=== PATIENT | male | born 1965 | race African-American/Black ===

== ENCOUNTER 2018-01-21 12:43 | Inpatient (IN) | payer OTHER ==
[2018-01-21 13:16] LABS: Glucose,Whole Blood 152 mg/dL (75-99)
[2018-01-21] MEDS ORDERED: PIPERACILLIN-TAZOBACTAM 3.375 GM in DEXTROSE/WATER 1 50ML.BAG IVPB STA (13:35)
[2018-01-21] MEDS ORDERED: ACETAMINOPHEN TAB 500 MG TAB PO STA (13:35)
[2018-01-21] MEDS ORDERED: SODIUM CHLORIDE 0.9% 1,000 ML IV STA (13:35)
[2018-01-21] MEDS ORDERED: OSELTAMIVIR 75 MG CAP PO STA (13:46)
[2018-01-21] MEDS ORDERED: VANCOMYCIN IV PER PHARMACY 1 EACH MISC MISCELLANE PRN (14:08)
[2018-01-21] MEDS ORDERED: VANCOMYCIN 2,250 MG in SODIUM CHLORIDE 0.9% 500 ML IVPB STA (14:16)
[2018-01-21 14:37] LABS: Basophils # (A) 0.3 k/uL (0-0.2); Basophils % (A) 4 %; Eosinophils % (A) 0 %; HCT 41.2 % (39.0-53.0); HGB 13.8 gm/dL (13.0-17.5); Lymphocytes # (A) 0.6 k/uL (1.0-4.8); Lymphocytes % (A) 7 %; MCH 26.5 pg (25.0-35.0); MCHC 33.6 g/dL (31.0-37.0); MCV 78.8 fL (80.0-100.0); Mean Platelet Volume 7.5; Monocytes % (A) 13 %; Neutrophils # (A) 5.7 k/uL (1.3-7.7); Neutrophils % (A) 74 %; Platelet Count 198 k/uL (150-450); RBC 5.23 m/uL (4.30-5.90); RDW 14.5 % (11.5-15.5); WBC 7.7 k/uL (3.8-10.6)
--- NOTE | 2018-01-21 14:46 | XR ---
EXAMINATION TYPE: XR chest 2V DATE OF EXAM: 01/21/2018 COMPARISON: NONE HISTORY: Fever and flulike symptoms, difficulty breathing TECHNIQUE: Frontal and lateral views of the chest are obtained. FINDINGS: There is no focal air space opacity, pleural effusion, or pneumothorax seen. The cardiac silhouette size is within normal limits. Patient is rotated, there may be underlying scoliosis. The osseous structures are intact. IMPRESSION: No acute cardiopulmonary process.
[2018-01-21 14:48] LABS: Albumin 3.8 g/dL (3.5-5.0); Calcium 8.6 mg/dL (8.4-10.2); Potassium 3.8 mmol/L (3.5-5.1); Total Bilirubin 0.3 mg/dL (0.2-1.3); Total Protein 7.3 g/dL (6.3-8.2)
[2018-01-21] MEDS: SODIUM CHLORIDE 0.9% 1,000 ML IV STA ×2 (14:57→15:11)
[2018-01-21] MEDS ORDERED: IBUPROFEN 800 MG TAB PO STA (15:07)
[2018-01-21] MEDS ORDERED: SODIUM CHLORIDE 0.9% 1,000 ML IV ONE (15:07)
[2018-01-21] MEDS ORDERED: SODIUM CHLORIDE 0.9% 2,000 ML IV ONE (15:44)
--- NOTE | 2018-01-21 15:47 | ED ---
Fever HPI - General Chief Complaint: Fever Stated Complaint: fever Time Seen by Provider: 01/21/18 13:30 Source: patient Mode of arrival: ambulatory Limitations: no limitations - History of Present Illness Initial Comments: 52 years old male presents with the high fever cough sputum production, he has a history of firm sepsis and recent past she was admitted for that also has a history of diabetes and now hypertension. He denies any chest pain no pleuritic chest pain and no sick contacts no history of coronary artery disease no stents in place. Denies any abdominal pain no frequency urgency dysuria no symptoms of TIA or CVA - Related Data Home Medications Medication Instructions Recorded Confirmed Dextroamphetamine/Amphetamine 30 mg PO BID 01/21/18 01/21/18 [Adderall Xr] Insulin Glargine [Lantus] See Protocol SQ HS PRN 01/21/18 01/21/18 Lisinopril [Zestril] 20 mg PO BID 01/21/18 01/21/18 Tadalafil [Cialis] 20 mg PO TID PRN 01/21/18 01/21/18 amLODIPine [Norvasc] 10 mg PO DAILY 01/21/18 01/21/18 traMADol HCL [Ultram] 50 mg PO Q4HR PRN 01/21/18 01/21/18 Allergies Allergy/AdvReac Type Severity Reaction Status Date / Time No Known Allergies Allergy Verified 01/21/18 14:18 Review of Systems ROS Statement: Those systems with pertinent positive or pertinent negative responses have been documented in the HPI. ROS Other: All systems not noted in ROS Statement are negative. Past Medical History Past Medical History: Diabetes Mellitus, Pneumonia Additional Past Medical History / Comment(s): sepsis, History of Any Multi-Drug Resistant Organisms: None Reported Past Surgical History: Orthopedic Surgery Additional Past Surgical History / Comment(s): rt wrist Past Psychological History: No Psychological Hx Reported Smoking Status: Never smoker Past Alcohol Use History: None Reported Past Drug Use History: None Reported General Exam - General Exam Comments Initial Comments: General: The patient is awake and alert, in mod distress, and does look tired and coughs consistently. Skin: Skin is warm and dry and no rashes or lesions are noted. Eye: Pupils are equal, round and reactive to light, extra-ocular movements are intact; there is normal conjunctiva bilaterally. Ears, nose, mouth and throat: There are moist mucous membranes and no oral lesions. Neck: The neck is supple, there is no tenderness , no signs of meningitis Cardiovascular: There is a regular rate and rhythm. No murmur, rub or gallop is appreciated. Respiratory: To auscultation bilateral, noticed times of secretions bilateral Gastrointestinal: Soft, non-distended, non-tender abdomen without masses or organomegaly noted. There is no rebound or guarding present. Bowel sounds are unremarkable. Back: There is no tenderness to palpation in the midline. There is no obvious deformity. Musculoskeletal: Normal ROM, no tenderness, There is no pedal edema. There is no calf tenderness or swelling. No cords were appreciated. Neurological: CN II-XII intact, Cranial nerves III through XII are intact. There are no obvious motor or sensory deficits. Coordination appears grossly intact. Speech is normal. Psychiatric: Cooperative, appropriate mood & affect, normal judgment. Limitations: no limitations Course Vital Signs 01/21/18 01/21/18 13:07 15:02 Temperature 103.0 F H 102.7 F H Pulse Rate 106 H 104 H Respiratory 24 24 Rate Blood Pressure 138/74 157/73 O2 Sat by Pulse 96 92 L Oximetry Medical Decision Making - Lab Data Result diagrams: 01/21/18 14:05 01/21/18 14:05 Lab Results 01/21/18 01/21/18 01/21/18 Range/Units 13:15 13:18 14:05 WBC 7.7 (3.8-10.6) k/uL RBC 5.23 (4.30-5.90) m/uL Hgb 13.8 (13.0-17.5) gm/dL Hct 41.2 (39.0-53.0) % MCV 78.8 L (80.0-100.0) fL MCH 26.5 (25.0-35.0) pg MCHC 33.6 (31.0-37.0) g/dL RDW 14.5 (11.5-15.5) % Plt Count 198 (150-450) k/uL Neutrophils % 74 % Lymphocytes % 7 % Monocytes % 13 % Eosinophils % 0 % Basophils % 4 % Neutrophils # 5.7 (1.3-7.7) k/uL Lymphocytes # 0.6 L (1.0-4.8) k/uL Monocytes # 1.0 (0-1.0) k/uL Eosinophils # 0.0 (0-0.7) k/uL Basophils # 0.3 H (0-0.2) k/uL Sodium (137-145) mmol/L Potassium (3.5-5.1) mmol/L Chloride (98-107) mmol/L Carbon Dioxide (22-30) mmol/L Anion Gap mmol/L BUN (9-20) mg/dL Creatinine (0.66-1.25) mg/dL Est GFR (CKD-EPI)AfAm (>60 ml/min/1.73 sqM) Est GFR (CKD-EPI)NonAf (>60 ml/min/1.73 sqM) Glucose (74-99) mg/dL POC Glucose (mg/dL) 152 H (75-99) mg/dL POC Glu Training Representative ID Plasma Lactic Acid Jordy (0.7-2.0) mmol/L Calcium (8.4-10.2) mg/dL Total Bilirubin (0.2-1.3) mg/dL AST (17-59) U/L ALT (21-72) U/L Alkaline Phosphatase (38-126) U/L Total Protein (6.3-8.2) g/dL Albumin (3.5-5.0) g/dL Influenza Type A RNA Detected H (Not Detectd) Influenza Type B (PCR) Not Detected (Not Detectd) Group A Strep Rapid (Negative) 01/21/18 01/21/18 01/21/18 Range/Units 14:05 14:05 14:10 WBC (3.8-10.6) k/uL RBC (4.30-5.90) m/uL Hgb (13.0-17.5) gm/dL Hct (39.0-53.0) % MCV (80.0-100.0) fL MCH (25.0-35.0) pg MCHC (31.0-37.0) g/dL RDW (11.5-15.5) % Plt Count (150-450) k/uL Neutrophils % % Lymphocytes % % Monocytes % % Eosinophils % % Basophils % % Neutrophils # (1.3-7.7) k/uL Lymphocytes # (1.0-4.8) k/uL Monocytes # (0-1.0) k/uL Eosinophils # (0-0.7) k/uL Basophils # (0-0.2) k/uL Sodium 137 (137-145) mmol/L Potassium 3.8 (3.5-5.1) mmol/L Chloride 99 (98-107) mmol/L Carbon Dioxide 27 (22-30) mmol/L Anion Gap 11 mmol/L BUN 16 (9-20) mg/dL Creatinine 1.10 (0.66-1.25) mg/dL Est GFR (CKD-EPI)AfAm 90 (>60 ml/min/1.73 sqM) Est GFR (CKD-EPI)NonAf 77 (>60 ml/min/1.73 sqM) Glucose 135 H (74-99) mg/dL POC Glucose (mg/dL) (75-99) mg/dL POC Glu Training Representative ID Plasma Lactic Acid Jordy 2.3 H* (0.7-2.0) mmol/L Calcium 8.6 (8.4-10.2) mg/dL Total Bilirubin 0.3 (0.2-1.3) mg/dL AST 55 (17-59) U/L ALT 43 (21-72) U/L Alkaline Phosphatase 79 (38-126) U/L Total Protein 7.3 (6.3-8.2) g/dL Albumin 3.8 (3.5-5.0) g/dL Influenza Type A RNA (Not Detectd) Influenza Type B (PCR) (Not Detectd) Group A Strep Rapid Negative (Negative) Disposition Referrals: Vasquez Grajeda MD [Primary Care Provider] - 1-2 days
[2018-01-21 15:51] LABS: Appearance,Urine Clear (Clear); Bilirubin,Urine Negative (Negative); Blood,Urine Moderate (Negative); Color,Urine Yellow; Glucose,Urine (UA) 3+ (Negative); Ketones,Urine Negative (Negative); Leukocyte Esterase,Urine Negative (Negative); Nitrite,Urine Negative (Negative); Protein,Urine 1+ (Negative); RBC,Urine 48 /hpf (0-5); Specific Gravity,Urine 1.011 (1.001-1.035); Urobilinogen,Urine <2.0 mg/dL (<2.0); WBC,Urine 3 /hpf (0-5)
[2018-01-21] MEDS ORDERED: traMADol 50 MG TAB PO PRN (15:58)
[2018-01-21] MEDS ORDERED: ONDANSETRON 4 MG/2 ML VIAL IVP PRN (19:33)
[2018-01-21] MEDS ORDERED: NALOXONE 0.4 MG/ML 1 ML VIAL IV PRN (19:33)
[2018-01-21] MEDS ORDERED: ACETAMINOPHEN TAB 500 MG TAB PO PRN (19:33)
[2018-01-21] MEDS ORDERED: NON-FORMULARY DRUG (Dextroamphetamine/Amphetamine [Adderall Xr] 30 MG) PO SCH (21:00)
[2018-01-21] MEDS: VANCOMYCIN 2,250 MG in SODIUM CHLORIDE 0.9% 500 ML IVPB SCH (21:48)
[2018-01-21] MEDS: LISINOPRIL 20 MG TAB PO SCH (21:48)
[2018-01-21] MEDS: OSELTAMIVIR 75 MG CAP PO SCH (21:55)
[2018-01-21] MEDS ORDERED: VANCOMYCIN 2,250 MG in SODIUM CHLORIDE 0.9% 500 ML IVPB SCH (23:00)
[2018-01-22] MEDS: PIPERACILLIN-TAZOBACTAM 3.375 GM in DEXTROSE/WATER 1 50ML.BAG IVPB SCH ×2 (01:03→08:47)
[2018-01-22 08:42] VITALS: BP 125/58; PULSE 94; RESP 18; TEMP 98.3
[2018-01-22 08:44] LABS: Anion Gap 11 mmol/L; Blood Urea Nitrogen 12 mg/dL (9-20); Calcium 7.5 mg/dL (8.4-10.2); Carbon Dioxide 22 mmol/L (22-30); Chloride 106 mmol/L (98-107); Glucose 164 mg/dL (74-99); Potassium 3.4 mmol/L (3.5-5.1); Sodium 139 mmol/L (137-145)
[2018-01-22] MEDS: VANCOMYCIN 2,250 MG in SODIUM CHLORIDE 0.9% 500 ML IVPB SCH ×2 (08:48→10:38)
[2018-01-22] MEDS: LISINOPRIL 20 MG TAB PO SCH (08:48)
[2018-01-22] MEDS: OSELTAMIVIR 75 MG CAP PO SCH (08:48)
[2018-01-22] MEDS ORDERED: amLODIPine 10 MG TAB PO SCH (09:00)
[2018-01-22] MEDS ORDERED: guaiFENesin-DM 100-10MG/5ML 10 ML CUP PO PRN (10:30)
--- NOTE | 2018-01-22 11:45 | P.HPIM ---
History of Present Illness 52 years old male presents with the high fever cough sputum production, He denies any chest pain no pleuritic chest pain and no sick contacts no history of coronary artery disease no stents in place. Denies any abdominal pain no frequency urgency dysuria no symptoms of TIA or CVA. Patient has significant flulike symptoms with fever patient was diagnosed with influenza patient will be discharged on Tamiflu received IV fluids patient was on broad-spectrum antibiotics which are not necessarily. Review of Systems REVIEW OF SYSTEMS: CONSTITUTIONAL: As mentioned in HPI HEENT: No recent visual problems or hearing problems. Denied any sore throat. CARDIOVASCULAR: No chest pain, orthopnea, PND, no palpitations, no syncope. PULMONARY: As mentioned in HPI GASTROINTESTINAL: No diarrhea, no nausea, no vomiting, no abdominal pain. Normoactive bowel sounds. NEUROLOGICAL: No headaches, no weakness, no numbness. HEMATOLOGICAL: Denies any bleeding or petechiae. GENITOURINARY: Denies any burning micturition, frequency, or urgency. MUSCULOSKELETAL/RHEUMATOLOGICAL: Denies any joint pain, swelling, or any muscle pain. ENDOCRINE: Denies any polyuria or polydipsia. The rest of the 14-point review of systems is negative. Past Medical History Past Medical History: Diabetes Mellitus, Hypertension, Osteoarthritis (OA), Pneumonia Additional Past Medical History / Comment(s): sepsis,as child broke lt arm-no sx only casted. History of Any Multi-Drug Resistant Organisms: None Reported Past Surgical History: Orthopedic Surgery, Tonsillectomy Additional Past Surgical History / Comment(s): rt wrist tendon repair Past Anesthesia/Blood Transfusion Reactions: Previous Problems w/ Anesthesia Additional Past Anesthesia/Blood Transfusion Reaction / Comment(s): "gets loopy ,combataive and somewhat depressed after aa" Smoking Status: Never smoker - Past Family History Father History Unknown: Yes Mother History Unknown: Yes Medications and Allergies Home Medications Medication Instructions Recorded Confirmed Type Dextroamphetamine/Amphetamine 30 mg PO BID 01/21/18 01/21/18 History [Adderall Xr] Insulin Glargine [Lantus] See Protocol SQ HS PRN 01/21/18 01/21/18 History Lisinopril [Zestril] 20 mg PO BID 01/21/18 01/21/18 History Tadalafil [Cialis] 20 mg PO TID PRN 01/21/18 01/21/18 History amLODIPine [Norvasc] 10 mg PO DAILY 01/21/18 01/21/18 History traMADol HCL [Ultram] 50 mg PO Q4HR PRN 01/21/18 01/21/18 History Allergies Allergy/AdvReac Type Severity Reaction Status Date / Time No Known Allergies Allergy Verified 01/21/18 14:18 Physical Exam Vitals: Vital Signs Temp Pulse Pulse Resp BP BP Pulse Ox 01/22/18 07:00 98.3 F 94 18 125/58 97 01/21/18 23:00 97.5 F L 85 16 134/76 99 01/21/18 20:04 67 18 119/61 97 01/21/18 18:10 99.4 F 95 22 130/67 96 01/21/18 15:02 102.7 F H 104 H 24 157/73 92 L 01/21/18 13:07 103.0 F H 106 H 24 138/74 96 Intake and Output 01/21/18 01/22/18 01/22/18 22:59 06:59 14:59 Intake Total 350 1050 Output Total 1000 1000 Balance 350 50 -1000 Intake: Intake, IV Titration 350 1050 Amount Piperacillin-Tazobactam 3 50 .375 gm In Dextrose/Water 1 50ml.bag @ 12.5 mls/hr IVPB Q8HR SUZANNE Rx#: [id number] Sodium Chloride 0.9% 1, 350 500 000 ml @ 100 mls/hr IV . Q10H STA Rx#:[id number] Vancomycin 2,250 mg In 500 Sodium Chloride 0.9% 500 ml @ 166.667 mls/hr IVPB BID SUZANNE Rx#:[id number] Output: Urine 1000 1000 Other: Voiding Method Urinal PHYSICAL EXAMINATION: GENERAL: The patient is alert and oriented x3, not in any acute distress. Well developed, well nourished. Morbidly obese HEENT: Pupils are round and equally reacting to light. EOMI. No scleral icterus. No conjunctival pallor. Normocephalic, atraumatic. No pharyngeal erythema. No thyromegaly. CARDIOVASCULAR: S1 and S2 present. No murmurs, rubs, or gallops. PULMONARY: Chest is clear to auscultation, no wheezing or crackles. ABDOMEN: Soft, nontender, nondistended, normoactive bowel sounds. No palpable organomegaly. MUSCULOSKELETAL: No joint swelling or deformity. EXTREMITIES: No cyanosis, clubbing, or pedal edema. NEUROLOGICAL: Gross neurological examination did not reveal any focal deficits. SKIN: No rashes. Results CBC & Chem 7: 01/21/18 14:05 01/22/18 07:50 Labs: Abnormal Lab Results - Last 24 Hours (Table) 01/21/18 01/21/18 01/21/18 Range/Units 13:15 13:18 13:30 MCV (80.0-100.0) fL Lymphocytes # (1.0-4.8) k/uL Basophils # (0-0.2) k/uL Potassium (3.5-5.1) mmol/L Glucose (74-99) mg/dL POC Glucose (mg/dL) 152 H (75-99) mg/dL Plasma Lactic Acid Jordy (0.7-2.0) mmol/L Calcium (8.4-10.2) mg/dL Urine Protein 1+ H (Negative) Urine Glucose (UA) 3+ H (Negative) Urine Blood Moderate H (Negative) Urine RBC 48 H (0-5) /hpf Influenza Type A RNA Detected H (Not Detectd) 01/21/18 01/21/18 01/21/18 Range/Units 14:05 14:05 14:05 MCV 78.8 L (80.0-100.0) fL Lymphocytes # 0.6 L (1.0-4.8) k/uL Basophils # 0.3 H (0-0.2) k/uL Potassium (3.5-5.1) mmol/L Glucose 135 H (74-99) mg/dL POC Glucose (mg/dL) (75-99) mg/dL Plasma Lactic Acid Jordy 2.3 H* (0.7-2.0) mmol/L Calcium (8.4-10.2) mg/dL Urine Protein (Negative) Urine Glucose (UA) (Negative) Urine Blood (Negative) Urine RBC (0-5) /hpf Influenza Type A RNA (Not Detectd) 01/22/18 Range/Units 07:50 MCV (80.0-100.0) fL Lymphocytes # (1.0-4.8) k/uL Basophils # (0-0.2) k/uL Potassium 3.4 L (3.5-5.1) mmol/L Glucose 164 H (74-99) mg/dL POC Glucose (mg/dL) (75-99) mg/dL Plasma Lactic Acid Jordy (0.7-2.0) mmol/L Calcium 7.5 L (8.4-10.2) mg/dL Urine Protein (Negative) Urine Glucose (UA) (Negative) Urine Blood (Negative) Urine RBC (0-5) /hpf Influenza Type A RNA (Not Detectd) Microbiology - Last 24 Hours (Table) 01/21/18 23:30 Urine Culture - Preliminary Urine,Voided 01/21/18 13:30 Urine Culture - Preliminary Urine,Voided 01/21/18 14:10 Group A Strep Throat Culture - Preliminary Throat Assessment and Plan Plan: -Sepsis and systemic inflammatory response secondary to influenza improved symptoms at this time patient will be discharged on Tamiflu. -Hypertension next and-obesity: Counseling was provided -Hyperlipidemia -Atrial flutter ablation presently rate controlled not on anticoagulation may be proximal atrial fibrillation
== END 2018-01-22 13:20 | disposition home or self-care (01) | DRG 872 ==
LOC: EC 12:43 → 5MS5E 19:33
PROVIDERS: ADMIT Internal Medicine; ATTEND Internal Medicine
DX: A41.89 Other specified sepsis (principal); E11.9 Type 2 diabetes mellitus without complications; J11.1 Influenza due to unidentified influenza virus with other respiratory manifestations; E66.9 Obesity, unspecified; E78.5 Hyperlipidemia, unspecified; I10 Essential (primary) hypertension; M19.90 Unspecified osteoarthritis, unspecified site; Z68.41 Body mass index [BMI] 40.0-44.9, adult; Z79.899 Other long term (current) drug therapy; Z79.4 Long term (current) use of insulin; Z87.01 Personal history of pneumonia (recurrent); Z71.3 Dietary counseling and surveillance
CPT/HCPCS: 36415; 71046; 80048; 80053; 81001; 83605; 85025; 87040; 87081; 87086; 87430; 87502; 96361; 96365; 96366; 96367; 99284

== ENCOUNTER 2019-12-31 11:52 | Emergency (ER) | payer OTHER ==
[2019-12-31 11:57] VITALS: TEMP 98.6
--- NOTE | 2019-12-31 12:58 | ED ---
Extremity Problem HPI - General Chief complaint: Extremity Problem,Nontraumatic Stated complaint: Left Leg Pain and Swelling Time Seen by Provider: 12/31/19 11:58 Source: patient Mode of arrival: ambulatory Limitations: no limitations - History of Present Illness Initial comments: Patient is a 54-year-old male, with history of diabetes, sepsis, presenting to emergency Department with complaints of left lower extremity swelling and pain has been increasing over the past 2-3 weeks. Patient noticed swelling in his left foot first and then has progressively getting worse. He denies any injuries or trauma to his left leg. He denies history of gout. He denies fever, chills, nausea, vomiting. He states he has been able to walk on his left extremity however is becoming more painful. He denies any recent travel. He has no other complaints at this time. Upon arrival to the ER, his vitals are stable. - Related Data Home Medications Medication Instructions Recorded Confirmed Dextroamphetamine/Amphetamine 30 mg PO BID 01/21/18 12/31/19 [Adderall Xr] amLODIPine [Norvasc] 10 mg PO DAILY 01/21/18 12/31/19 traMADol HCL [Ultram] 100 mg PO TID 01/21/18 12/31/19 INSULIN LISPRO (humaLOG) [humaLOG] 19 units SQ [id number] 12/31/19 12/31/19 Insulin Glargine [Lantus] 48 unit SQ DAILY 12/31/19 12/31/19 Lisinopril 20 mg PO BID 12/31/19 12/31/19 Sildenafil [Revatio] 20 mg PO TID 12/31/19 12/31/19 metFORMIN HCL [Glucophage] 500 mg PO BID 12/31/19 12/31/19 Previous Rx's Medication Instructions Recorded Cephalexin [Keflex] 500 mg PO Q6HR 10 Days #40 cap 12/31/19 Sulfamethox-Tmp 800-160Mg [Bactrim 1 each PO Q12HR 10 Days #20 tab 12/31/19 Ds] Allergies Allergy/AdvReac Type Severity Reaction Status Date / Time No Known Allergies Allergy Verified 12/31/19 12:49 Review of Systems ROS Statement: Those systems with pertinent positive or pertinent negative responses have been documented in the HPI. ROS Other: All systems not noted in ROS Statement are negative. Past Medical History Past Medical History: Diabetes Mellitus, Pneumonia Additional Past Medical History / Comment(s): sepsis, History of Any Multi-Drug Resistant Organisms: None Reported Past Surgical History: Orthopedic Surgery Additional Past Surgical History / Comment(s): rt wrist Past Anesthesia/Blood Transfusion Reactions: Previous Problems w/ Anesthesia Additional Past Anesthesia/Blood Transfusion Reaction / Comment(s): "gets loopy ,combataive and somewhat depressed after aa" Past Psychological History: No Psychological Hx Reported Smoking Status: Never smoker Past Alcohol Use History: Occasional Past Drug Use History: None Reported - Past Family History Father History Unknown: Yes Mother History Unknown: Yes General Exam - General Exam Comments Initial Comments: GENERAL: Well-appearing, well-nourished and in no acute distress. HEAD: Atraumatic, normocephalic. EYES: Pupils equal round and reactive to light, extraocular movements intact, sclera anicteric, conjunctiva are normal. ENT: TMs normal, nares patent, oropharynx clear without exudates. Moist mucous membranes. NECK: Normal range of motion, supple without lymphadenopathy or JVD. LUNGS: Breath sounds clear to auscultation bilaterally and equal. No wheezes rales or rhonchi. HEART: Regular rate and rhythm without murmurs, rubs or gallops. ABDOMEN: Soft, nontender, normoactive bowel sounds. No guarding, no rebound. No masses appreciated. : Deferred EXTREMITIES: Patient has moderate amount of swelling of left lower extremity compared to right. Increase in warmth of the left lower leg compared to the right as well. Palpable dorsal pedis pulse is equal bilateral. Patient does have pain with palpation on the left medial foot, over her first metatarsal. No pain with palpation of the left calf or left knee. Patient does have full range of motion of his left knee, left ankle, left foot. No clubbing or cyanosis. NEUROLOGICAL: Normal speech, normal gait. PSYCH: Normal mood, normal affect. SKIN: Warm, Dry, normal turgor, no rashes or lesions noted. Limitations: no limitations Course Vital Signs 12/31/19 12/31/19 12/31/19 11:54 11:57 12:57 Temperature 98.6 F Pulse Rate 81 68 Respiratory 16 20 20 Rate Blood Pressure 124/78 124/78 O2 Sat by Pulse 95 99 Oximetry 12/31/19 12/31/19 13:57 14:53 Temperature Pulse Rate 72 Respiratory 20 20 Rate Blood Pressure 125/72 O2 Sat by Pulse 99 Oximetry Medical Decision Making - Medical Decision Making Patient is a 54-year-old male, with history of diabetes, presenting with left lower leg swelling, pain, warmth for the past 2-3 weeks. Vitals are stable today. No trauma to the leg. X-ray of the left foot shows no acute fractures dislocations. Ultrasound of the left lower extremity shows no signs of DVT. Lab work reveals an elevated ESR 16 and CRP at 20. Potassium is low at 3.0. White count is normal. I discussed these findings with the patient and his . Patient will be given oral tablet of potassium as well as 1 g of Rocephin. Patient will be treated for possible left lower leg cellulitis. Started on Keflex and Bactrim and will follow up with his primary care physician in 1- 3 days. He is in agreement with this plan of care. Return parameters were discussed with the patient and his and they both verbalized understa nding. He is stable for discharge. Case discussed with Dr. Lackey. - Lab Data Result diagrams: 12/31/19 13:34 12/31/19 13:34 Lab Results 12/31/19 12/31/19 12/31/19 Range/Units 13:34 13:34 13:34 WBC 10.3 (3.8-10.6) k/uL RBC 5.25 (4.30-5.90) m/uL Hgb 13.9 (13.0-17.5) gm/dL Hct 43.2 (39.0-53.0) % MCV 82.3 D (80.0-100.0) fL MCH 26.4 (25.0-35.0) pg MCHC 32.1 (31.0-37.0) g/dL RDW 15.3 (11.5-15.5) % Plt Count 240 (150-450) k/uL Neutrophils % 63 % Lymphocytes % 27 % Monocytes % 5 % Eosinophils % 3 % Basophils % 0 % Neutrophils # 6.4 (1.3-7.7) k/uL Lymphocytes # 2.8 (1.0-4.8) k/uL Monocytes # 0.5 (0-1.0) k/uL Eosinophils # 0.3 (0-0.7) k/uL Basophils # 0.0 (0-0.2) k/uL ESR (0-15) mm/hr PT 10.0 (9.0-12.0) sec INR 1.0 (<1.2) APTT 25.2 (22.0-30.0) sec Sodium 141 (137-145) mmol/L Potassium 3.0 L (3.5-5.1) mmol/L Chloride 107 (98-107) mmol/L Carbon Dioxide 24 (22-30) mmol/L Anion Gap 10 mmol/L BUN 16 (9-20) mg/dL Creatinine 1.08 (0.66-1.25) mg/dL Est GFR (CKD-EPI)AfAm >90 (>60 ml/min/1.73 sqM) Est GFR (CKD-EPI)NonAf 78 (>60 ml/min/1.73 sqM) Glucose 167 H (74-99) mg/dL Uric Acid 5.6 (3.5-8.5) mg/dL Calcium 8.4 (8.4-10.2) mg/dL Total Bilirubin 0.4 (0.2-1.3) mg/dL AST 34 (17-59) U/L ALT 27 (4-49) U/L Alkaline Phosphatase 79 (38-126) U/L C-Reactive Protein (<10.0) mg/L Total Protein 7.5 (6.3-8.2) g/dL Albumin 3.9 (3.5-5.0) g/dL 12/31/19 12/31/19 Range/Units 13:34 14:20 WBC (3.8-10.6) k/uL RBC (4.30-5.90) m/uL Hgb (13.0-17.5) gm/dL Hct (39.0-53.0) % MCV (80.0-100.0) fL MCH (25.0-35.0) pg MCHC (31.0-37.0) g/dL RDW (11.5-15.5) % Plt Count (150-450) k/uL Neutrophils % % Lymphocytes % % Monocytes % % Eosinophils % % Basophils % % Neutrophils # (1.3-7.7) k/uL Lymphocytes # (1.0-4.8) k/uL Monocytes # (0-1.0) k/uL Eosinophils # (0-0.7) k/uL Basophils # (0-0.2) k/uL ESR 16 H (0-15) mm/hr PT (9.0-12.0) sec INR (<1.2) APTT (22.0-30.0) sec Sodium (137-145) mmol/L Potassium (3.5-5.1) mmol/L Chloride (98-107) mmol/L Carbon Dioxide (22-30) mmol/L Anion Gap mmol/L BUN (9-20) mg/dL Creatinine (0.66-1.25) mg/dL Est GFR (CKD-EPI)AfAm (>60 ml/min/1.73 sqM) Est GFR (CKD-EPI)NonAf (>60 ml/min/1.73 sqM) Glucose (74-99) mg/dL Uric Acid (3.5-8.5) mg/dL Calcium (8.4-10.2) mg/dL Total Bilirubin (0.2-1.3) mg/dL AST (17-59) U/L ALT (4-49) U/L Alkaline Phosphatase (38-126) U/L C-Reactive Protein 20.3 H (<10.0) mg/L Total Protein (6.3-8.2) g/dL Albumin (3.5-5.0) g/dL Disposition Clinical Impression: Cellulitis of left lower leg, Swelling of left lower extremity Disposition: HOME SELF-CARE Condition: Stable Instructions (If sedation given, give patient instructions): Cellulitis (ED) Additional Instructions: Please return to the Emergency Department if symptoms worsen or any other concerns. Take both antibiotics as prescribed. Monitor her glucose levels closely with antibiotic use. Elevate the leg. Follow-up with PCP as discussed. Prescriptions: Sulfamethox-Tmp 800-160Mg [Bactrim Ds] 1 each PO Q12HR 10 Days #20 tab Cephalexin [Keflex] 500 mg PO Q6HR 10 Days #40 cap Is patient prescribed a controlled substance at d/c from ED?: No Referrals: Vasquez Grajeda MD [Primary Care Provider] - 1-2 days
[2019-12-31 13:29] VITALS: RESP 20
--- NOTE | 2019-12-31 13:30 | XR ---
EXAMINATION TYPE: XR foot complete LT , 3 VIEWS DATE OF EXAM ORDERED: 12/31/2019 HISTORY: swelling, pain. COMPARISON: None. FINDINGS: There are hammertoe deformities of all 5 digits. There is a prominent plantar calcaneal sp ur. No fracture or dislocation is seen. IMPRESSION: NO ACUTE OSSEOUS LESION.
[2019-12-31 14:05] LABS: Partial Thromboplastin Time 25.2 sec (22.0-30.0)
[2019-12-31 14:06] LABS: Basophils % (A) 0 %; Eosinophils # (A) 0.3 k/uL (0-0.7); Eosinophils % (A) 3 %; HCT 43.2 % (39.0-53.0); HGB 13.9 gm/dL (13.0-17.5); Lymphocytes # (A) 2.8 k/uL (1.0-4.8); Lymphocytes % (A) 27 %; MCH 26.4 pg (25.0-35.0); MCHC 32.1 g/dL (31.0-37.0); Mean Platelet Volume 7.8; Monocytes # (A) 0.5 k/uL (0-1.0); Monocytes % (A) 5 %; Neutrophils # (A) 6.4 k/uL (1.3-7.7); Neutrophils % (A) 63 %; Platelet Count 240 k/uL (150-450); RBC 5.25 m/uL (4.30-5.90); RDW 15.3 % (11.5-15.5); WBC 10.3 k/uL (3.8-10.6)
--- NOTE | 2019-12-31 14:06 | US ---
EXAMINATION TYPE: US venous doppler duplex LE LT DATE OF EXAM: 12/31/2019 12:39 PM COMPARISON: NONE CLINICAL HISTORY: swelling, pain. Left leg pain. No hx DVT. Not on blood thinners. Patient states having swelling. SIDE PERFORMED: Left TECHNIQUE: The lower extremity deep venous system is examined utilizing real time linear array sonog pa with graded compression, doppler sonography and color-flow sonography. VESSELS IMAGED: External Iliac Vein (EIV) Common Femoral Vein Deep Femoral Vein Greater Saphenous Vein * Femoral Vein Popliteal Vein Small Saphenous Vein * Proximal Calf Veins (* superficial vessels) Left Leg: Negative for DVT No popliteal fossa lesion is seen. IMPRESSION: THIS EXAMINATION IS NEGATIVE FOR DVT WITHIN THE LEFT LEG.
[2019-12-31 14:07] LABS: MCV 82.3 fL (80.0-100.0)
[2019-12-31 14:23] LABS: ALT 27 U/L (4-49); AST 34 U/L (17-59); African American GFR (CKD) >90 (>60 ml/min/1.73 sqM); Albumin 3.9 g/dL (3.5-5.0); Alkaline Phosphatase 79 U/L (38-126); Anion Gap 10 mmol/L; Blood Urea Nitrogen 16 mg/dL (9-20); Calcium 8.4 mg/dL (8.4-10.2); Carbon Dioxide 24 mmol/L (22-30); Chloride 107 mmol/L (98-107); Glucose 167 mg/dL (74-99); Non-African American GFR(CKD) 78 (>60 ml/min/1.73 sqM); Sodium 141 mmol/L (137-145); Total Bilirubin 0.4 mg/dL (0.2-1.3); Total Protein 7.5 g/dL (6.3-8.2); Uric Acid 5.6 mg/dL (3.5-8.5)
[2019-12-31] MEDS ORDERED: POTASSIUM CHLORIDE ER 20 MEQ TAB.ER PO STA (14:38)
[2019-12-31] MEDS ORDERED: cefTRIAXone IN SWFI 1,000 MG/10 ML SYRINGE IVP STA (14:38)
[2019-12-31 14:49] VITALS: BP 125/72; PULSE 72
== END 2019-12-31 14:53 | disposition home or self-care (01) ==
LOC: EC 11:52
DX: L03.116 Cellulitis of left lower limb (principal); E11.9 Type 2 diabetes mellitus without complications; Z79.4 Long term (current) use of insulin; Z79.899 Other long term (current) drug therapy
CPT/HCPCS: 36415; 80053; 85652; 84550; 85025; 85610; 85730; 86140; 73630; 93971; 99284; 96374; J0696